=== PATIENT | male | born 1965 | race Caucasian/White ===

== ENCOUNTER 2016-08-18 00:01 | Outpatient (POV) ==
[2016-05-01 20:47] VITALS: BMI 28.1
== END 2016-08-18 00:02 ==
LOC: OUTPT 00:01
PROVIDERS: ATTEND Otolaryngology
DX: R42 Dizziness and giddiness (principal)
CPT/HCPCS: 92557; 92567

== ENCOUNTER 2016-11-10 19:12 | Emergency (ER) ==
[2016-11-10 19:19] VITALS: BP 134/88; TEMP 97.3; BMI 28.8
[2016-11-10] MEDS ORDERED: CLEOCIN PO STA (19:51)
[2016-11-10] MEDS ORDERED: PREDNISONE PO STA (19:51)
--- NOTE | 2016-11-10 19:53 | ED.PDOC ---
General ED Provider: Dr. RAMO HATHAWAY Chief Complaint: Bite Stated Complaint: some thing bite on the rt forearm 3-4 days ago, its been itching and today is is rainsed and red. came for the evaluation as he is going out of the town. Time Seen by Physician: 19:51 Mode of Arrival: Walk-In Information Source: Patient Primary Care Provider: JOHN WEAVER Nursing and Triage Documentation Reviewed and Agree: Yes Skin Complaint Exam - Skin/Soft Tissue Complaint/Exam Symptoms Are: Still present Timing: Constant Initial Severity: Mild Current Severity: Mild Character: Reports: Redness, Swelling, Raised. Denies: Painful Aggravating: Reports: Touch Associated Signs and Symptoms: Reports: Fever. Denies: Chills, Itching, Drainage, Bruising, Tenderness, Red streaks, Joint swelling Related Surgical History: Reports: None Recent Exposure to Others w/Similar Symptoms: No Skin Findings: Present: Erythema. Absent: Induration Differential Diagnoses: Cellulitis, Infection Review of Systems - Review Of Systems Constitutional: Reports: No symptoms Eyes: Reports: No symptoms Ears, Nose, Mouth, Throat: Reports: No symptoms Respiratory: Reports: No symptoms Cardiac: Reports: No symptoms GI: Reports: No symptoms : Reports: No symptoms Musculoskeletal: Reports: No symptoms Skin: Reports: No symptoms Neurological: Reports: No symptoms Endocrine: Reports: No symptoms Hematologic/Lymphatic: Reports: No symptoms All Other Systems: Reviewed and Negative Past Medical History - Past Medical History Previously Healthy: Yes Endocrine: Reports: None Cardiovascular: Reports: None Respiratory: Reports: None Hematological: Reports: None Gastrointestinal: Reports: None Genitourinary: Reports: None Neuro/Psych: Reports: None Musculoskeletal: Reports: None Cancer: Reports: None - Surgical History General Surgical History: Reports: None - Family History Family History: Reports: None - Social History Smoking Status: Never smoker Hx Substance Use: No Alcohol Screening: None - Immunizations Tetanus Shot up to Date: (aug 2016) Physical Exam - Physical Exam Appearance: Well-appearing, No pain distress, Well-nourished Eyes: JAYASHREE, EOMI, Conjunctiva clear ENT: Ears normal, Nose normal, Oropharynx normal Respiratory: Airway patent, Breath sounds clear, Breath sounds equal, Respirations nonlabored Cardiovascular: RRR, Pulses normal, No rub, No murmur GI/: Soft, Nontender, No masses, Bowel sounds normal, No Organomegaly Musculoskeletal: Normal strength, ROM intact, No edema, No calf tenderness Skin: Warm, Dry, Normal color Neurological: Sensation intact, Motor intact, Reflexes intact, Cranial nerves intact, Alert, Oriented Psychiatric: Affect appropriate, Mood appropriate Critical Care Note - Critical Care Note Total Time (mins): 0 Course - Course Vital Signs: Temp Pulse Resp BP Pulse Ox 11/10/16 19:13 97.3 F L 55 L 16 134/88 98 Departure - Departure Time of Disposition: 19:55 Disposition: HOME SELF-CARE Discharge Problem: Cellulitis of forearm, right Instructions: Cellulitis (ED) Condition: Stable Pt referred to PMD for follow-up: No Additional Instructions: skin hygiene if the swelling and redness not better needs to come back probiotics Prescriptions: Clindamycin HCl 300 mg PO TID #15 capsule Prednisone 10 mg PO BIDWM #14 tablet Allergies/Adverse Reactions: Allergies hydromorphone [From Dilaudid] Adverse Reaction (Verified 11/10/16 19:18) Nausea Home Medications: Ambulatory Orders Clindamycin HCl 300 mg PO TID #15 capsule 11/10/16 Prednisone 10 mg PO BIDWM #14 tablet 11/10/16 Disposition Discussed With: Patient, Family
== END 2016-11-10 20:22 | disposition home or self-care (01) ==
LOC: ED 19:12
DX: L03.113 Cellulitis of right upper limb (principal)
CPT/HCPCS: 99282